=== PATIENT | male | born 1990 | race Two or more races ===

== ENCOUNTER 2017-04-08 12:09 | Emergency (ER) | payer OTHER ==
[~2017-04-08] VITALS: Ht 172.7 cm; Wt 77.1 kg
--- NOTE | 2017-04-08 12:41 | Emergency Room Report ---
History of Present Illness General Chief Complaint: Back Pain-No Injury Source: Patient Present Illness HPI 27 yo male presents to ER complaining of left flank pain x5 days. Patient reports pain radiates down left leg to knee. Patient states pain is sharp and constant; increasing in intensity. Patient denies use of medication for relief of symptoms. Patient denies hx of injury. Reports walking with need of assistance from who is present in ER with patient. Patient denies diarrhea, constipation; denies recent travel. Denies pain with urination, blood in stool. Denies bowel or bladder incontinence. Patient denies fever, nausea, vomiting, chest pain, abdominal pain, SOB. Allergies: Coded Allergies: No Known Allergies (Unverified , 04/08/17) Patient History Past Medical History: see triage record Reviewed Nursing Documentation: PMH: Agreed, PSxH: Agreed Nursing Documentation-PMH Past Medical History: No Stated History Review of Systems All Other Systems: negative except mentioned in HPI Physical Exam Vital Signs Date Time Temp Pulse Resp B/P (MAP) Pulse Ox O2 Delivery O2 Flow Rate FiO2 04/08/17 12:21 97.5 85 16 114/78 100 Room Air 97.5 Sp02 EP Interpretation: reviewed, normal General Appearance: well appearing, alert, GCS 15, non-toxic, mild distress Head: normocephalic, atraumatic Eyes: bilateral eye normal inspection, bilateral eye PERRL ENT: hearing grossly normal, normal pharynx, normal voice, uvula midline, moist mucus membranes Neck: full range of motion Respiratory: normal inspection, lungs clear, normal breath sounds, no accessory muscle use, no wheezing, speaking full sentences Cardiovascular #1: regular rate, rhythm, no edema Gastrointestinal: normal bowel sounds, non tender, soft, no mass, no organomegaly, non-distended, no guarding, no rebound, other - negative Rovsing, no TTP at McBurney's point Genitourinary: no vertebral tenderness, CVA tenderness (L) Musculoskeletal: back normal, digits/nails normal, gait/station normal, normal range of motion, non-tender, no calf tenderness, pelvis stable, other - positive straight leg test Neurologic: alert, oriented x3, responsive, lan/wan engineer III-XII nml as tested, motor strength/tone normal, sensory intact Psychiatric: mood/affect normal Skin: no rash Medical Decision Making PA Attestation Dr. Cox is my supervising Physician whom patient management has been discussed with. Diagnostic Impression: Primary Impression: Back pain Additional Impression: Blood glucose elevated ER Course Pt. presents to the ED c/o flank pain. Ddx considered but are not limited to UTI, kidney stones, muscle strain, constipation, sciatica. Vital signs: are WNL, pt. is afebrile Ordered labs, pain medication, and CT imaging of abdomen. ER COURSE: Labs unremarkable, no elevation in WBC, elevated blood glucose. UA unremarkable, no nitrites, no urinary symptoms; no tx required for UTI at this time. CT negative for kidney stones, negative for bony changes. Discussed results with patient. Informed patient that pain likely musculoskeletal in nature or may be related to possible sciatica. Instructed patient to followup with primary care provider for further treatment and imaging. Patient reports history of diabetes in his family. Informed patient to followup with primary care for elevated blood glucose measurement. Patient reports understanding and agreement to treatment plan. Patient reports feeling better following administration of pain medication. Patient is seen resting in bed and texting on phone. Patient able to ambulate out of ER independently, does not require wheelchair or other form of assistance at this time. DISCHARGE: Rx provided for Ibuprofen for pain Rx provided for Methocarbamol. Instructed patient not to take medication before drinking, driving or operating heavy machinery as may cause drowsiness. At this time pt is stable for d/c to home. Patient is resting comfortably, in no acute distress, nontoxic appearing, talking without difficulty. Patient provided with work note. Patient to take medications as instructed Will provide with patient care instructions and any necessary prescriptions. Care plan and follow-up instructions provided. Patient instructed to follow-up with primary care provider in 3 - 5 days. Patient questions asked and answered. ER precautions given. Patient instructed to return to ER immediately for any new or worsening of symptoms including but not limited to increasing SOB, persistent fever. Labs Test 04/08/17 12:45 04/08/17 13:20 Urine Color Yellow Urine Appearance Clear Urine pH 6.5 (4.5-8.0) Urine Specific [place] 1.015 (1.005-1.035) Urine Protein 2+ (NEGATIVE) Urine Glucose (UA) 1+ (NEGATIVE) Urine Ketones Negative (NEGATIVE) Urine Occult Blood Negative (NEGATIVE) Urine Nitrite Negative (NEGATIVE) Urine Bilirubin Negative (NEGATIVE) Urine Urobilinogen Normal MG/DL (0.0-1.0) Urine Leukocyte Esterase 1+ (NEGATIVE) Urine RBC 0-2 /HPF (0 - 0) Urine WBC 2-4 /HPF (0 - 0) Urine Squamous Epithelial Cells Occasional /LPF Urine Bacteria Occasional /HPF (NONE) Urine Fine Granular Casts 0-2 /LPF (NONE) Urine Mucus Few /LPF (NONE/OCC) White Blood Count 6.5 K/UL (4.8-10.8) Red Blood Count 5.35 M/UL (4.70-6.10) Hemoglobin 16.5 G/DL (14.2-18.0) Hematocrit 47.9 % (42.0-52.0) Mean Corpuscular Volume 90 FL (80-99) Mean Corpuscular Hemoglobin 30.8 PG (27.0-31.0) Mean Corpuscular Hemoglobin Concent 34.4 G/DL (32.0-36.0) Red Cell Distribution Width 11.3 % (11.6-14.8) Platelet Count 337 K/UL (150-450) Mean Platelet Volume 6.1 FL (6.5-10.1) Neutrophils (%) (Auto) 69.7 % (45.0-75.0) Lymphocytes (%) (Auto) 19.5 % (20.0-45.0) Monocytes (%) (Auto) 8.8 % (1.0-10.0) Eosinophils (%) (Auto) 0.5 % (0.0-3.0) Basophils (%) (Auto) 1.4 % (0.0-2.0) Sodium Level 140 MMOL/L (136-145) Potassium Level 3.8 MMOL/L (3.5-5.1) Chloride Level 105 MMOL/L (98-107) Carbon Dioxide Level 28 MMOL/L (21-32) Anion Gap 7 mmol/L (5-15) Blood Urea Nitrogen 9 mg/dL (7-18) Creatinine 0.8 MG/DL (0.55-1.30) Estimat Glomerular Filtration Rate > 60 mL/min (>60) Glucose Level 136 MG/DL (74-106) Calcium Level 8.8 MG/DL (8.5-10.1) Total Bilirubin 0.4 MG/DL (0.2-1.0) Aspartate Amino Transf (AST/SGOT) 24 U/L (15-37) Alanine Aminotransferase (ALT/SGPT) 33 U/L (12-78) Alkaline Phosphatase 97 U/L (46-116) Total Protein 7.1 G/DL (6.4-8.2) Albumin 3.4 G/DL (3.4-5.0) Globulin 3.7 g/dL Albumin/Globulin Ratio 0.9 (1.0-2.7) Lipase 376 U/L (73-393) CT/MRI/US Diagnostic Results CT/MRI/US Diagnostic Results : Imaging Test Ordered: CT abdomen Impression Essentially unremarkable exam. Negative for evidence of urinary stone disease or obstructive uropathy. No other acute or significant abnormality Incidental finding of minimal right basilar pulmonary parenchymal atelectasis or scarring Last Vital Signs Date Time Temp Pulse Resp B/P (MAP) Pulse Ox O2 Delivery O2 Flow Rate FiO2 04/08/17 12:21 97.5 85 16 114/78 100 Room Air 97.5 Disposition: HOME, SELF-CARE Condition: Stable Scripts Methocarbamol* (METHOCARBAMOL*) 500 Mg Tablet 500 MG ORAL TID Y for For Pain, #15 TAB 0 Refills Prov: Esau Desir 04/08/17 Ibuprofen* (MOTRIN*) 600 Mg Tablet 600 MG ORAL Q8H Y for For Pain, #30 TAB 0 Refills Prov: Esau Desir 04/08/17 Patient Instructions: Back Pain, Adult, Hyperglycemia, [id number], Sciatica Additional Instructions: Followup with primary care provider in 3 -5 days for further treatment and referral. May required referral to ortho and imaging. Discuss with physician elevated blood glucose reading. Take medications as directed. Patient questions asked and answered. ER precautions given, patient instructed to return to ER immediately for any new or worsening of symptoms. sEau Desir Apr 08, 2017 12:41
[2017-04-08] MEDS ORDERED: Ketorolac 30mg Inj IV ONE (12:45)
[2017-04-08 13:15] LABS: APPEARANCE,URINE CLEAR; BILIRUBIN, URINE NEGATIVE (NEGATIVE); GLUCOSE, URINE (UA) 1+ (NEGATIVE); KETONES,URINE NEGATIVE (NEGATIVE); LEUKOCYTE ESTERASE ,URINE 1+ (NEGATIVE); NITRITE,URINE NEGATIVE (NEGATIVE); PH,URINE 6.5 (4.5-8.0); PROTEIN,URINE 2+ (NEGATIVE); UROBILINOGEN,URINE NORMAL MG/DL (0.0-1.0)
[2017-04-08 13:16] LABS: COLOR,URINE YELLOW
[2017-04-08 13:37] LABS: BASOPHILS % (AUTO) 1.4 % (0.0-2.0); EOSINOPHILS % (AUTO) 0.5 % (0.0-3.0); HEMATOCRIT 47.9 % (42.0-52.0); HEMOGLOBIN 16.5 G/DL (14.2-18.0); LYMPHOCYTES % (AUTO) 19.5 % (20.0-45.0); MEAN CORPUSCULAR VOLUME 90 FL (80-99); MONOCYTES % (AUTO) 8.8 % (1.0-10.0); NEUTROPHILS % (AUTO) 69.7 % (45.0-75.0); PLATELET COUNT 337 K/UL (150-450); RED BLOOD COUNT 5.35 M/UL (4.70-6.10); RED CELL DISTRIBUTION WIDTH 11.3 % (11.6-14.8); WHITE BLOOD COUNT 6.5 K/UL (4.8-10.8)
--- NOTE | 2017-04-08 14:07 | Diagnostic Imaging Report ---
Indication: Reason For Exam: PAIN Technique: Spiral acquisitions obtained through the abdomen and pelvis. No oral contrast utilized, per emergency room physician request No IV contrast utilized, per referring physician request.. Multiplanar reconstructions were generated. Total dose length product 796.79 mGycm. CTDIvol(s) 14.12 mGy. Dose reduction achieved using automated exposure control Comparison: Findings: Indication: Left flank pain x6 days Technique: Spiral acquisitions obtained through the abdomen and pelvis. No oral or IV contrast utilized, per urinary stone protocol. Multiplanar reconstructions were generated. Total dose length product 796.79 mGycm. CTDIvol(s) 14.12 mGy. Dose reduction achieved using automated exposure control Comparison: none Findings: Bilaterally, no renal or ureteral calculi, hydronephrosis, or hydroureter demonstrated. No significant perinephric fat stranding. Lack of IV contrast limits assessment of the renal parenchyma. No gross renal parenchymal mass or cyst demonstrated. Lack of IV contrast limits assessment of the other solid organs. The liver is unremarkable. The gallbladder is nondistended. The bile ducts, pancreas, spleen, adrenals are unremarkable. No retroperitoneal or mesenteric mass or adenopathy. No pelvic mass or adenopathy. No evidence of diverticulosis or diverticulitis is demonstrated. The appendix is normal. No small bowel distention. No free or loculated intraperitoneal air or fluid. Distal esophagus, stomach, duodenum are unremarkable. The included lung bases demonstrate minimal atelectasis or scarring on the right, are otherwise clear. The bones are unremarkable. Impression: Essentially unremarkable exam. Negative for evidence of urinary stone disease or obstructive uropathy. No other acute or significant abnormality Incidental finding of minimal right basilar pulmonary parenchymal atelectasis or scarring The CT scanner at [facility] [place] is accredited by the [employer] and the scans are performed using protocols designed to limit radiation exposure to as low as reasonably achievable to attain images of sufficient resolution adequate for diagnostic evaluation. Impression: The CT scanner at [facility] [place] is accredited by the [employer] and the scans are performed using protocols designed to limit radiation exposure to as low as reasonably achievable to attain images of sufficient resolution adequate for diagnostic evaluation.
[2017-04-08 14:14] LABS: ANION GAP 7 mmol/L (5-15); BLOOD UREA NITROGEN 9 mg/dL (7-18); CALCIUM 8.8 MG/DL (8.5-10.1); CARBON DIOXIDE 28 MMOL/L (21-32); CHLORIDE 105 MMOL/L (98-107); CREATININE 0.8 MG/DL (0.55-1.30); POTASSIUM 3.8 MMOL/L (3.5-5.1); SODIUM 140 MMOL/L (136-145)
[2017-04-08 14:15] LABS: ALANINE AMINOTRANSFERASE 33 U/L (12-78); ALBUMIN 3.4 G/DL (3.4-5.0); ALBUMIN/GLOBULIN RATIO 0.9 (1.0-2.7); ALKALINE PHOSPHATASE 97 U/L (46-116); ASPARTATE AMINO TRANSFERASE 24 U/L (15-37); BILIRUBIN,TOTAL 0.4 MG/DL (0.2-1.0)
[2017-04-08] MEDS ORDERED: IBUPROFEN600 MG ORAL (14:26)
[2017-04-08] MEDS ORDERED: METHOCARBAMOL500 MG ORAL (14:26)
[2017-04-08 14:38] VITALS: BP 114/78
== END 2017-04-08 14:40 | disposition home or self-care (01) ==
LOC: EMR 13:01
DX: M54.5 Low back pain (principal); R73.9 Hyperglycemia, unspecified; R10.9 Unspecified abdominal pain
CPT/HCPCS: 36415; 74176; 80053; 81003; 83690; 85025; 96374; 99284; J1885